=== PATIENT | male | born 1980 | race Caucasian/White ===

== ENCOUNTER 2023-07-30 01:54 | Emergency (ER) | payer SELFPAY ==
[2023-07-30 02:03] VITALS: BP 135/76
--- NOTE | 2023-07-30 02:45 | ED.GENMED ---
History of Present Illness
<STEVE Luke - Last Filed: 07/30/23 04:35>
General
Chief Complaint: Anxiety
Source: patient
Exam Limitations: none
Time Seen by Provider: 07/30/23 02:28
Travel History
Have you had any contact with someone who has COVID-19?: No
Do you have any symptoms of coronavirus? Fever > 100 degrees, chills, cough, shortness of breath, sore throat, loss of taste or smell, muscle aches, or headache?: No
History of Present Illness
History of Present Illness:
42 year old male with hx of anxiety, depression, ADHD, bipolar I disorder, and recent diagnosis of PTSD who presents with night terrors and anxiety that occurred last night and tonight. He called EMS tonight after having waking up with night
terrors. States he would wake up from sleep and not know where he was, sometimes he wakes up screaming. States his roommate is sometimes afraid of him because of his night terrors. Pt is from [place] and is here transiently. He works for a [employer]. States he has a therapist but is needing a psychiatrist for refills of his medications. He is on Prazosin 1 mg, Remeron 15 mg, Hydroxyzine 50 mg, Caplyta 42 mg. He has only one pill left of Prazosin which he takes for night
terrors. States he has not taken it for about 2 weeks. Denies chest pain, SOB, abdominal pain, SI/HI. Additionally, pt has swelling to bilateral hands which began 2-3 days. Swelling has worsened. Denies pain, numbness, tingling. States his hands
just feel tight when he makes a fist. Reports tobacco and vape use. Denies etoh or drug use. 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
Past History
<STEVE Luke - Last Filed: 07/30/23 04:35>
Social History
Tobacco: Vaping
Alcohol: None
Drug: None
Review of Systems
<STEVE Luke - Last Filed: 07/30/23 04:35>
Review of Systems
Allergies reviewed?: Yes
All Other Systems: ROS reviewed and negative except as documented in HPI and ROS
Constitutional: Reports no symptoms
EENT: Reports no symptoms
Respiratory: Reports no symptoms
Cardiac: Reports no symptoms
ABD/GI: Reports no symptoms
: Reports no symptoms
Musculoskeletal: Reports other (bilateral hand swelling)
Skin: Reports no symptoms
Neurological: Reports no symptoms
Psychiatric: Reports depression, anxiety and other (night terrors)
Phy Exam
<STEVE Luke - Last Filed: 07/30/23 04:35>
General Physical Exam
General Presentation: well appearing and no apparent distress
General age: appears stated age
General Skin: warm and dry
General Habitus: normal
General Mental: alert
General Hydration: appears well hydrated
Cardiovascular Exam
Cardiovascular Exam: regular rate/rhythm, no edema, no gallop, no murmur and normal peripheral pulses
Pulmonary Exam
Pulmonary Exam: lungs clear, no respiratory distress, no rales, no crackles, no rhonchi, no wheezing and no cough
Neurological Exam
Neurological Exam: alert and oriented x3
Musculoskeletal Exam
Musculoskeletal Exam: other (focal swelling of bilateral hands with erythema)
Skin Exam
Skin Exam: normal color, warm/dry and other (excoriations to bilateral forearms and hands, some scabbed over and some open, appear not infected)
Psychiatric Exam
Psychiatric Exam: normal mood/affect
Course
<STEVE Luke - Last Filed: 07/30/23 04:35>
Orders/Labs/Results
Orders:
Orders
07/30/23 03:11
Crisis Consult Urgent
Reason for Consult: gen anxiety-PTSD, night terrors. Needs OP referral info
Vital Signs
Initial and Last Documented VS:
Initial Vital Signs
Temp
98.8 F
07/30/23 01:55
Last Documented Vital Signs
Temp Pulse Resp BP Pulse Ox
98.8 F 95 19 135/76 95
07/30/23 01:55 07/30/23 02:03 07/30/23 02:03 07/30/23 02:03 07/30/23 02:03
<Delmy Jaimes DO - Last Filed: 07/30/23 04:18>
Orders/Labs/Results
Orders:
Orders
07/30/23 03:11
Crisis Consult Urgent
Reason for Consult: gen anxiety-PTSD, night terrors. Needs OP referral info
Vital Signs
Initial and Last Documented VS:
Initial Vital Signs
Temp
98.8 F
07/30/23 01:55
Last Documented Vital Signs
Temp Pulse Resp BP Pulse Ox
98.8 F 95 19 135/76 95
07/30/23 01:55 07/30/23 02:03 07/30/23 02:03 07/30/23 02:03 07/30/23 02:03
<STEVE Luke - Last Filed: 07/30/23 04:35>
MDM/Problems Addressed
Differential Diagnosis Includes:
night terrors, PTSD
MDM/Problems Addressed:
42 year old male who presents with episodes of waking up screaming and not knowing where he is.
Chronic conditions affecting care: Psychiatric illness (anxiety, PTSD, bipolar I disorder)
<STEVE Luke - Last Filed: 07/30/23 04:35>
*Critical Care Note
Total Time (30-74mins, 75-104mins- exclusive of procedures): Not Applicable
<Delmy Jaimes DO - Last Filed: 07/30/23 04:18>
*Pulse Oximetry
Patient hypoxic: no
ED Attending Note
<STEVE Luke - Last Filed: 07/30/23 04:35>
-
Portions of this chart may have been created with voice recognition software.� Occasional wrong word or��sound alike� substitutions may have occurred due to the inherent limitations of voice recognition software.
<Delmy Jaimes DO - Last Filed: 07/30/23 04:18>
ED Attending Note
Patient seen and examined by attending physician: Yes
I performed the substantive portion of visit, reviewed & personally made and approve the management plan that is documented in note by myself or JAYLA.: Yes
I performed a history and physical exam of patient and discussed management with resident, I reviewed resident's note and agree with documented findings and plan of care.: Yes
ED Attending Note:
This is a 42-year-old gentleman with history of generalized anxiety disorder, PTSD as well as night terrors. He is originally from [place], family in [place] but over the past 6 to 8 months he had initially been residing in [place] and then for the
past 2 months has been residing locally in [place]. He has traveled from [place] and now [place] for employment, he works outdoors, installing pools.
While residing in [place] and then for several months in [place] he had been following regularly with a primary care physician as well as following with a psychiatrist and therapist. While in [place] he participated in an intensive outpatient
program for his anxieties, PTSD and night terrors.
He is chronically maintained on Remeron 15 mg daily, Caplyta 42 mg daily, hydroxyzine 50 mg 3 times daily as needed and prazosin 1 mg at bedtime.
Since relocating to [place] 2 months ago he admits to neglecting to establishing with a local PCP as well as psychiatrist and he inadvertently ran out of his prazosin 2 weeks ago.
He complains of increased episodes of night terrors, waking up significantly anxious.
He presents via EMS after a similar episode of waking abruptly, anxious. He is requesting a refill of his prazosin.
He is also requesting assistance with referral to a local PCP as well as local psychiatric services.
He remains quite active, working on a full-time basis. He denies alcohol nor drug use. He denies depression, denies suicidal thoughts, denies obsessive thoughts.
He is noted to have several scabbed lesions bilateral forearms as well as mild global sunburn to dorsal aspects of his forearms and hands and moderate edema bilateral hands. Patient admits that these scabbed lesions have been an ongoing work
related issue, working with harsh chemicals. He denies pain nor fever.
His mode of transportation is an electric scooter and he admits to scraping his right anterior jimenez several days ago while riding his scooter. He is noted to have an intact dry scabbed abrasion right anterior jimenez without surrounding erythema and
no local tenderness.
GENERAL: 42-year-old gentleman appears somewhat older than stated age. He is bright and alert, pleasant, appears in no acute distress. Easily communicative. Normal speech pattern, normal thought processes.
EYE: pupils equal and reactive. anicteric
NECK: Supple, nontender, no meningismus, no significant adenopathy.
ENT: oral mucosa is moist. No rhinorrhea.
CARDIAC: Regular rate and rhythm. no murmur.
LUNGS: Clear breath sounds bilaterally, no acute respiratory distress, no wheezes/rales/rhonchi
ABDOMEN: Soft, nondistended, without focal tenderness
NEUROLOGICAL: Alert and oriented x3, no focal neuro deficits. Gait is kern and steady.
SKIN: Warm and dry, mild global erythema to the dorsal aspect of bilateral forearms and hands with rounded scabbed nontender lesions bilateral forearms. There is a subacute skin abrasion right anterior mid jimenez with thick intact scab without
surrounding erythema nor soft tissue swelling. No palpable tenderness.
MUSCULOSKELETAL: Mild global soft tissue swelling bilateral dorsal hands, peripheral pulses are full and equal b/l. No palpable tenderness.
PSYCH: Normal and appropriate interaction.
Patient has longstanding history of generalized anxiety disorder, PTSD, night terrors which have been well-controlled with current regimen of Remeron, Caplyta, prazosin and as needed hydroxyzine.
Night terrors have recurred with inadvertent discontinuation of prazosin 2 weeks ago.
Will resume nightly prazosin. Patient at this point does not require refill of Remeron, hydroxyzine nor Caplyta but requests referral to a local PCP. He states he has [employer] insurance.
Will refer to our family practice residency clinic.
I have also consulted [facility] for evaluation and assistance with outpatient referral information.
Patient noted to have several scabbed lesions bilateral forearms as well as a subacute abrasion right anterior jimenez. There is no focal tenderness, no fever. Recommend a course of Bactroban ointment and he has been encouraged to utilize SPF while
working outdoors and to wear gloves while working with harsh chemicals.
Discharge Plan
Departure
Patient Disposition: Home (Routine Discharge)
Date of Disposition: 07/30/23
Time of Disposition: 03:57
Patient with high blood pressure during this ER visit?: No
Condition: Good
Discharge Problem:
Adult night terrors, subacute skin abrasions
Instructions: Generalized Anxiety Disorder (DC), Night Terrors
Prescriptions:
New
prazosin 1 mg capsule
1 mg PO HS Qty: 30 1RF
mupirocin 2 % ointment
1 applic topical BID Qty: 50 0RF
Referrals:
[facility] [Provider Group] - Call in 1-3 days for appt
[facility] [Outside]
NONE,* [Family Provider] -
Interventions
Interventions:
*Risk Screen - Suicide Last Done: 07/30/23 01:55
*General Assessment Last Done: 07/30/23 01:55
*Neglect/Abuse Screening Last Done: 07/30/23 01:55
ED- Fall Risk Assessment Last Done: 07/30/23 02:37
*ED COVID-19 Vaccine History Last Done: 07/30/23 01:55
*Nursing Disposition Last Done: 07/30/23 04:11
ED-Psychological Assessment Last Done: 07/30/23 02:38
Discharge Date and Time
Discharge Date/Time: 07/30/23 04:11
Print Language: [place]
== END 2023-07-30 04:11 | disposition home or self-care (01) ==
LOC: EMR 01:54
PROVIDERS: EMERGENCY PHYSICIAN Emergency Medicine
DX: F51.4 Sleep terrors [night terrors] (principal); S80.811A Abrasion, right lower leg, initial encounter; X58.XXXA Exposure to other specified factors, initial encounter; F41.9 Anxiety disorder, unspecified; F31.9 Bipolar disorder, unspecified; F90.9 Attention-deficit hyperactivity disorder, unspecified type; F43.10 Post-traumatic stress disorder, unspecified; F17.290 Nicotine dependence, other tobacco product, uncomplicated; Z79.899 Other long term (current) drug therapy
CPT/HCPCS: 99282